=== PATIENT | male | born 1955 | race Caucasian/White ===

== ENCOUNTER → 2020-07-22 | Outpatient (CLI) | payer OTHER | END | disposition home or self-care (01) | LOC: RAH 13:23 | PROVIDERS: ATTEND Internal Medicine Critical Care Medicine | DX: Z13.6 Encounter for screening for cardiovascular disorders (principal) | CPT/HCPCS: 75571 ==

== ENCOUNTER 2021-07-08 11:21 | Inpatient (IN) | payer OTHER ==
[~2021-07-08] VITALS: Ht 180.3 cm; Wt 91.2 kg
[2021-07-08 12:34] LABS: APPEARANCE,URINE Clear (CLEAR); BILIRUBIN,URINE Negative (NEGATIVE); COLOR,URINE Yellow (YELLOW); GLUCOSE, URINE (UA) >=1000 mg/dL (NEGATIVE); KETONES,URINE 40 mg/dL (NEGATIVE); LEUKOCYTE ESTERASE ,URINE Negative (NEGATIVE); NITRATE,URINE Negative (NEGATIVE); OCCULT BLOOD,URINE Negative (NEGATIVE); PROTEIN,URINE POS 1+ mg/dL (NEGATIVE)
[2021-07-08 12:40] LABS: BACTERIA,URINE Rare /HPF (None Seen); RBC,URINE 0-1 /HPF (0-1); SQUAMOUS EPITHELIAL CELL,UR Rare /HPF (0-2); WBC,URINE 0-1 /HPF (0-1)
[2021-07-08 12:42] LABS: AMPHET/METH SCREEN,URINE NEGATIVE (NEGATIVE); BARBITURATE SCREEN, URINE NEGATIVE (NEGATIVE); BENZODIAZEPINES SCREEN,URINE NEGATIVE (NEGATIVE); CANNABINOID SCREEN,URINE NEGATIVE (NEGATIVE); COCAINE SCREEN,URINE NEGATIVE (NEGATIVE); OPIATE SCREEN,URINE NEGATIVE (NEGATIVE); PHENCYCLIDINE SCREEN,URINE NEGATIVE (NEGATIVE)
[2021-07-08 13:04] LABS: BASOPHILS % (AUTO) 0.5 % (0.0-5.0); EOSINOPHILS % (AUTO) 0.6 % (0.0-8.0); HEMATOCRIT 44.8 % (42-54); LYMPHOCYTES % (AUTO) 9.7 % (21.0-51.0); MEAN CORPUSCULAR HEMOGLOBIN 29.2 pg (27.0-33.0); MEAN CORPUSCULAR VOLUME 83.3 fL (79-99); MONOCYTES % (AUTO) 10.4 % (3.0-13.0); NEUTROPHILS % (AUTO) 78.2 % (40.0-77.0); PLATELET COUNT (AUTO) 202 K/uL (130-400); RED BLOOD CELL COUNT(AUTO) 5.38 MIL/uL (4.50-6.20); RED CELL DISTRIBUTION WIDTH 11.9 % (11.0-15.5); WHITE BLOOD COUNT (AUTO) 8.3 K/uL (4.8-10.8)
[2021-07-08 13:17] LABS: CARBON DIOXIDE 29 mmol/L (21-32); CHLORIDE 97 mmol/L (101-111); CREATININE 0.9 mg/dL (0.5-1.5); GLOMERULAR FILTR. RATE CALC 90 mL/min (>60); GLUCOSE,RANDOM 320 mg/dL (70-105); SODIUM SERUM 136 mmol/L (136-145); UREA NITROGEN, BLOOD 4 mg/dL (7-18)
[2021-07-08 13:21] LABS: ALANINE AMINOTRANSFERASE 32 U/L (12-78); ALBUMIN 2.8 g/dL (3.5-5.0); ALCOHOL, BLOOD < 3 mg/dL (0-10); ASPARTATE AMINOTRANSFERASE 18 U/L (10-37); BILIRUBIN,TOTAL 0.5 mg/dL (0.2-1.0); CREATINE KINASE, TOTAL 32 U/L (21-232); TOTAL PROTEIN, SERUM 7.6 g/dL (6.0-8.3)
[2021-07-08 13:24] LABS: ACETAMINOPHEN < 1 mcg/mL (10-29); SALICYLATE < 2.8 mg/dL (2.8-20.0)
[2021-07-08] MEDS ORDERED: ONDANSETRON 4MG INJ IVP ONE (13:30)
[2021-07-08] MEDS ORDERED: MORPHINE 4 MG SYG IV ONE (13:30)
[2021-07-08] MEDS ORDERED: VANCOMYCIN KIT 1 GM/250 ML IV.KIT IV ONE (14:30)
[2021-07-08] MEDS ORDERED: IOHEXOL-350 75 ML VIAL IV ONE (14:34)
[2021-07-08] MEDS ORDERED: 0.9% NACL 250ML 250 ML IV ONE (15:00)
[2021-07-08] MEDS ORDERED: 0.9%NACL 50ML 50 ML IV ONE (15:00)
[2021-07-08] MEDS ORDERED: KCL 20 MEQ ERTAB PO ONE (15:00)
[2021-07-08] MEDS ORDERED: DEXTROSE 50%-WATER 50 ML DISP.SYRIN IV PRN (16:00)
[2021-07-08] MEDS ORDERED: GLUCAGON 1MG KIT 1 MG ML IM PRN (16:00)
[2021-07-08] MEDS ORDERED: KCL 20 MEQ ERTAB PO PRN (16:30)
[2021-07-08] MEDS ORDERED: DiphenhydrAMINE HCL 50 MG/ML VIAL IV PRN (16:30)
[2021-07-08] MEDS ORDERED: ONDANSETRON 4MG INJ IV PRN (16:30)
[2021-07-08] MEDS ORDERED: LIDOCAINE HCL-MPF 1% 2ML VIAL IV PRN (16:30)
[2021-07-08] MEDS ORDERED: DIPHENHYDRAMINE HCL 25 MG CAPSULE PO PRN (16:30)
[2021-07-08] MEDS ORDERED: GUAIFENESIN-DM 200/20 MG 10 ML PO PRN (16:30)
[2021-07-08] MEDS ORDERED: ACETAMINOPHEN 325 MG TAB PO PRN (16:30)
[2021-07-08] MEDS ORDERED: POTASSIUM CHLORIDE 20MEQ/100ML 100 ML IV PRN (16:30)
[2021-07-08] MEDS: INSULIN HUMULIN R 100 UNIT/ML 3ML SQ SCH ×2 (16:42→21:43)
[2021-07-08] MEDS ORDERED: ZOSYN 3.375GM +NS 50ML IV SCH (17:00)
[2021-07-08] MEDS: CLINDAMYCIN IVPB 600MG/50ML 50 ML IV SCH (17:05)
[2021-07-08 17:44] LABS: HEMOGLOBIN A1C 13.4 % (4.0-6.0)
[2021-07-08] MEDS: 0.9%NACL 1000ML 1,000 ML IV SCH (17:47)
[2021-07-08] MEDS: MORPHINE 2 MG SYG IV PRN (17:48)
[2021-07-08] MEDS ORDERED: MORPHINE 2 MG SYG IVP ONE (19:40)
[2021-07-08] MEDS: FAMOTIDINE 20MG TAB PO SCH (21:21)
[2021-07-09] MEDS: CLINDAMYCIN IVPB 600MG/50ML 50 ML IV SCH ×3 (01:08→17:10)
[2021-07-09] MEDS: MORPHINE 2 MG SYG IV PRN ×2 (02:24→21:48)
[2021-07-09] MEDS: ZOLPIDEM TARTRATE 5 MG TAB PO PRN (02:24)
[2021-07-09] MEDS: 0.9%NACL 1000ML 1,000 ML IV SCH ×2 (06:52→19:10)
[2021-07-09] MEDS: INSULIN HUMULIN R 100 UNIT/ML 3ML SQ SCH ×4 (06:58→21:39)
[2021-07-09] MEDS: ACETAMINOPHEN WITH CODEINE 1 TAB TAB PO PRN ×3 (08:09→18:06)
[2021-07-09] MEDS: ENOXAPARIN SODIUM 30 MG/0.3 ML SQ SCH (08:22)
[2021-07-09] MEDS: FAMOTIDINE 20MG TAB PO SCH ×2 (08:22→21:29)
[2021-07-09 14:27] VITALS: BP 111/60
[2021-07-09 16:30] VITALS: BP 116/67
[2021-07-09 19:40] VITALS: BP 97/56
[2021-07-09] MEDS: POTASSIUM CHLORIDE 10% ELIXIR 20 MEQ/15 ML UDCUP PO PRN ×2 (21:49→23:49)
[2021-07-09] MEDS ORDERED: INSULIN GLARGINE 100 UNITS/ML 10 ML VIAL SQ ONE (23:00)
[2021-07-09 23:20] VITALS: BP 122/71
[2021-07-09] MEDS: ZOSYN 3.375GM +NS 50ML IV SCH (23:23)
[2021-07-10] VITALS (23 sets, daily range): BP systolic 82–141; BP diastolic 59–93
[2021-07-10] MEDS: CLINDAMYCIN IVPB 600MG/50ML 50 ML IV SCH ×3 (00:04→16:55)
[2021-07-10] MEDS: POTASSIUM CHLORIDE 10% ELIXIR 20 MEQ/15 ML UDCUP PO PRN (01:45)
[2021-07-10 05:10] LABS: BASOPHILS % (AUTO) 0.5 % (0.0-5.0); EOSINOPHILS % (AUTO) 1.6 % (0.0-8.0); HEMATOCRIT 42.1 % (42-54); LYMPHOCYTES % (AUTO) 15.9 % (21.0-51.0); MEAN CORPUSCULAR HEMOGLOBIN 29.1 pg (27.0-33.0); MEAN CORPUSCULAR HGB CONC 33.7 g/dL (32.0-36.0); MEAN CORPUSCULAR VOLUME 86.3 fL (79-99); PLATELET COUNT (AUTO) 211 K/uL (130-400); RED BLOOD CELL COUNT(AUTO) 4.88 MIL/uL (4.50-6.20); WHITE BLOOD COUNT (AUTO) 7.5 K/uL (4.8-10.8)
[2021-07-10] MEDS: KETOROLAC 30MG VIAL (30MG/ML) IV PRN ×3 (05:13→22:15)
[2021-07-10 05:31] LABS: ALBUMIN 2.1 g/dL (3.5-5.0); BILIRUBIN,TOTAL 0.4 mg/dL (0.2-1.0); CREATININE 0.6 mg/dL (0.5-1.5); MAGNESIUM 1.7 mg/dL (1.80-2.40); PHOSPHORUS 3.1 mg/dL (2.5-4.9); POTASSIUM 3.9 mmol/L (3.5-5.1); TOTAL PROTEIN, SERUM 6.5 g/dL (6.0-8.3)
[2021-07-10] MEDS: ZOSYN 3.375GM +NS 50ML IV SCH ×3 (06:04→22:14)
[2021-07-10] MEDS: INSULIN HUMULIN R 100 UNIT/ML 3ML SQ SCH ×7 (06:50→21:53)
[2021-07-10] MEDS: 0.9%NACL 1000ML 1,000 ML IV SCH ×2 (08:36→14:34)
[2021-07-10] MEDS: ENOXAPARIN SODIUM 30 MG/0.3 ML SQ SCH (08:37)
[2021-07-10] MEDS: FAMOTIDINE 20MG TAB PO SCH ×2 (08:37→21:47)
[2021-07-10] MEDS ORDERED: PROPOFOL 10 MG/ML 20ML VIAL IV ONE (09:07)
[2021-07-10] MEDS ORDERED: LIDOCAINE PF 100MG/5ML (2%) SYRINGE 5ML ONE (09:07)
[2021-07-10] MEDS ORDERED: FENTANYL CITRATE PF 50 MCG/1 ML 2ML VIAL ONE (09:08)
[2021-07-10] MEDS ORDERED: MIDAZOLAM HCL 1 MG/ML 2ML VIAL ONE (09:11)
[2021-07-10] MEDS ORDERED: CEFAZOLIN SODIUM 1 GM VIAL ONE (09:34)
[2021-07-10] MEDS ORDERED: BUPIVACAINE/EPI/PF 0.5% 30ML VIAL IJ ONE (09:40)
[2021-07-10] MEDS ORDERED: LIDOCAINE HCL 1% 20 ML VIAL ONE (09:41)
[2021-07-10] MEDS ORDERED: OXYCODONE/ACETAMIN 5/325MG TAB PO PRN (12:00)
[2021-07-10] MEDS: INSULIN GLARGINE 100 UNITS/ML 10 ML VIAL SQ SCH (21:52)
[2021-07-11] VITALS: BP 143/82
[2021-07-11] MEDS: CLINDAMYCIN IVPB 600MG/50ML 50 ML IV SCH ×4 (00:31→23:25)
[2021-07-11 04:00] VITALS: BP 124/69
[2021-07-11 05:17] LABS: HEMATOCRIT 38.7 % (42-54); MEAN CORPUSCULAR HEMOGLOBIN 29.4 pg (27.0-33.0); MEAN CORPUSCULAR HGB CONC 34.4 g/dL (32.0-36.0); MEAN CORPUSCULAR VOLUME 85.4 fL (79-99); RED BLOOD CELL COUNT(AUTO) 4.53 MIL/uL (4.50-6.20); RED CELL DISTRIBUTION WIDTH 11.9 % (11.0-15.5); WHITE BLOOD COUNT (AUTO) 5.4 K/uL (4.8-10.8)
[2021-07-11 05:36] LABS: ALBUMIN 2.2 g/dL (3.5-5.0); BILIRUBIN,TOTAL 0.2 mg/dL (0.2-1.0); CREATININE 0.7 mg/dL (0.5-1.5); POTASSIUM 3.9 mmol/L (3.5-5.1); TOTAL PROTEIN, SERUM 6.1 g/dL (6.0-8.3)
[2021-07-11] MEDS: ZOSYN 3.375GM +NS 50ML IV SCH ×3 (06:09→23:25)
[2021-07-11] MEDS: INSULIN HUMULIN R 100 UNIT/ML 3ML SQ SCH ×7 (06:21→20:39)
[2021-07-11] MEDS: KETOROLAC 30MG VIAL (30MG/ML) IV PRN ×3 (06:38→20:41)
[2021-07-11 08:00] VITALS: BP 132/78
[2021-07-11] MEDS: FAMOTIDINE 20MG TAB PO SCH ×2 (09:57→20:41)
[2021-07-11] MEDS: ENOXAPARIN SODIUM 30 MG/0.3 ML SQ SCH (09:57)
[2021-07-11 12:00] VITALS: BP 137/78
[2021-07-11 16:00] VITALS: BP 136/68
[2021-07-11] MEDS: ACETAMINOPHEN WITH CODEINE 1 TAB TAB PO PRN ×2 (16:46→23:38)
[2021-07-11 20:00] VITALS: BP 146/89
[2021-07-11] MEDS: INSULIN GLARGINE 100 UNITS/ML 10 ML VIAL SQ SCH (20:39)
[2021-07-11] MEDS: ZOLPIDEM TARTRATE 5 MG TAB PO PRN (23:37)
[2021-07-12] VITALS: BP 147/97
[2021-07-12] MEDS: LACTULOSE 20 GM/30 ML UDCUP PO SCH ×2 (01:30→12:08)
[2021-07-12 03:55] VITALS: BP 139/83
[2021-07-12 05:21] LABS: BASOPHILS % (AUTO) 1.6 % (0.0-5.0); EOSINOPHILS % (AUTO) 2.8 % (0.0-8.0); HEMATOCRIT 40.6 % (42-54); LYMPHOCYTES % (AUTO) 28.1 % (21.0-51.0); MEAN CORPUSCULAR HEMOGLOBIN 31.2 pg (27.0-33.0); MEAN CORPUSCULAR HGB CONC 36.2 g/dL (32.0-36.0); MEAN CORPUSCULAR VOLUME 86.2 fL (79-99); MONOCYTES % (AUTO) 13.3 % (3.0-13.0); NEUTROPHILS % (AUTO) 49.4 % (40.0-77.0); PLATELET COUNT (AUTO) 193 K/uL (130-400); RED BLOOD CELL COUNT(AUTO) 4.71 MIL/uL (4.50-6.20); RED CELL DISTRIBUTION WIDTH 11.9 % (11.0-15.5)
[2021-07-12 05:35] LABS: ALBUMIN 2.3 g/dL (3.5-5.0); BILIRUBIN,TOTAL 0.3 mg/dL (0.2-1.0); CREATININE 0.8 mg/dL (0.5-1.5); TOTAL PROTEIN, SERUM 6.3 g/dL (6.0-8.3)
[2021-07-12] MEDS: KETOROLAC 30MG VIAL (30MG/ML) IV PRN ×2 (06:09→20:39)
[2021-07-12] MEDS: ZOSYN 3.375GM +NS 50ML IV SCH ×3 (06:09→23:04)
[2021-07-12] MEDS: INSULIN HUMULIN R 100 UNIT/ML 3ML SQ SCH ×7 (06:32→20:27)
[2021-07-12 08:00] VITALS: BP 145/86
[2021-07-12] MEDS: FAMOTIDINE 20MG TAB PO SCH ×2 (08:27→20:29)
[2021-07-12] MEDS: CLINDAMYCIN IVPB 600MG/50ML 50 ML IV SCH (08:27)
[2021-07-12] MEDS: ENOXAPARIN SODIUM 30 MG/0.3 ML SQ SCH (08:28)
[2021-07-12 12:00] VITALS: BP 133/83
[2021-07-12] MEDS: ACETAMINOPHEN WITH CODEINE 1 TAB TAB PO PRN (12:15)
[2021-07-12 16:00] VITALS: BP 158/98
[2021-07-12 20:00] VITALS: BP 134/87
[2021-07-12] MEDS: INSULIN GLARGINE 100 UNITS/ML 10 ML VIAL SQ SCH (20:21)
[2021-07-13] VITALS: BP 146/88
[2021-07-13] MEDS: CLINDAMYCIN IVPB 600MG/50ML 50 ML IV SCH (01:04)
[2021-07-13] MEDS: LACTULOSE 20 GM/30 ML UDCUP PO SCH (01:04)
[2021-07-13 04:00] VITALS: BP 155/95
[2021-07-13 04:57] LABS: CREATININE 0.9 mg/dL (0.5-1.5); POTASSIUM 4.2 mmol/L (3.5-5.1)
[2021-07-13] MEDS: INSULIN HUMULIN R 100 UNIT/ML 3ML SQ SCH ×4 (06:07→16:28)
[2021-07-13] MEDS: ZOSYN 3.375GM +NS 50ML IV SCH (06:17)
[2021-07-13] MEDS: KETOROLAC 30MG VIAL (30MG/ML) IV PRN (06:20)
[2021-07-13 08:00] VITALS: BP 153/90
[2021-07-13] MEDS ORDERED: AMOX/CLAV 875/125MG TAB PO SCH (08:00)
[2021-07-13] MEDS ORDERED: ACETAMINOPHEN WITH CODEINE 1 TAB TAB PO PRN ×2 (08:00)
[2021-07-13] MEDS ORDERED: LISINOPRIL 10 MG TABLET PO SCH (09:00)
[2021-07-13] MEDS ORDERED: POLYETHYLENE GLYCOL 3350 17 GM POWD.PACK PO SCH (09:00)
[2021-07-13] MEDS: METFORMIN HCL 500 MG TABLET PO SCH ×3 (09:04→16:27)
[2021-07-13] MEDS: FAMOTIDINE 20MG TAB PO SCH (09:04)
[2021-07-13] MEDS: ENOXAPARIN SODIUM 30 MG/0.3 ML SQ SCH (09:05)
[2021-07-13] MEDS: LUBIPROSTONE 24 MCG CAP PO SCH ×3 (09:07→16:30)
[2021-07-13 12:00] VITALS: BP 126/80
[2021-07-13] MEDS ORDERED: LISI10TA24 PO (13:18)
[2021-07-13] MEDS ORDERED: GLIP5TAB11 PO (13:18)
[2021-07-13] MEDS ORDERED: TYL3B PO (13:18)
[2021-07-13] MEDS ORDERED: AMOX1TAB16 PO (13:18)
[2021-07-13] MEDS ORDERED: METF-444 PO (13:18)
[2021-07-13] MEDS ORDERED: BISACODYL 10 MG SUPP.RECT RC ONE (14:00)
[2021-07-13 16:00] VITALS: BP 117/79
[2021-07-13] MEDS ORDERED: GLIPIZIDE 5 MG TABLET PO SCH (16:30)
[2021-07-22] MEDS ORDERED: CEFAZOLIN SODIUM 1 GM VIAL IVP SCH (13:30)
== END 2021-07-13 17:55 | disposition home or self-care (01) | DRG 348 ==
LOC: EDH 11:21 → EDHIP 11:22 → UNDOADMIN 15:57 → EDHIP 15:57 → 3DH 07-09 14:04
PROVIDERS: ADMIT Hospitalist; ATTEND Hospitalist
PROC: 0D9Q0ZZ Drainage of Anus, Open Approach (ICD-10-PCS; principal; 2021-07-10 09:08)
DX: K61.0 Anal abscess (principal); L03.317 Cellulitis of buttock; E44.0 Moderate protein-calorie malnutrition; R45.851 Suicidal ideations; L02.31 Cutaneous abscess of buttock; E87.6 Hypokalemia; E11.65 Type 2 diabetes mellitus with hyperglycemia; Z20.822 Contact with and (suspected) exposure to COVID-19; B95.61 Methicillin susceptible Staphylococcus aureus infection as the cause of diseases classified elsewhere; I10 Essential (primary) hypertension; F32.9 Major depressive disorder, single episode, unspecified; F10.20 Alcohol dependence, uncomplicated; Z68.28 Body mass index [BMI] 28.0-28.9, adult; Z59.00 Homelessness unspecified; Z56.0 Unemployment, unspecified; Z91.14 Patient's other noncompliance with medication regimen; Z91.19 Patient's noncompliance with other medical treatment and regimen; Z82.49 Family history of ischemic heart disease and other diseases of the circulatory system
CPT/HCPCS: 36415; 71045; 72193; 80048; 80053; 80305; 81001; 82010; 82550; 82728; 82948; 83036; 83605; 83735; 84100; 84145; 84484; 85025; 85027; 85651; 86140; 87040; 87070; 87076; 87077; 87186; 87635; A6266; C9803; G0378; G0481; J0690; J1200; J1650; J1815; J1885; J2001; J2250; J2270; J2405; J2543; J2704; J3010; J3370; J3480; J3490; J7030; Q9967

== ENCOUNTER 2021-07-21 17:02 | Inpatient (IN) | payer OTHER ==
[~2021-07-21] VITALS: Ht 180.3 cm; Wt 87.6 kg
[~2021-07-21 17:02] MED LIST: AMOX1TAB16 PO; GLIP5TAB11 PO; LISI10TA24 PO; METF-444 PO; TYL3B PO; VANCOMYCIN 1G/250ML KIT 250 ML IV SCH
[2021-07-21] MEDS ORDERED: ZOSYN 3.375GM +NS 50ML IV STA (18:15)
[2021-07-21] MEDS ORDERED: VANCOMYCIN 1G VIAL IVPB STA (18:15)
[2021-07-21 19:13] LABS: BASOPHILS % (AUTO) 0.4 % (0.0-5.0); EOSINOPHILS % (AUTO) 0.5 % (0.0-8.0); HEMATOCRIT 47.4 % (42-54); LYMPHOCYTES % (AUTO) 23.4 % (21.0-51.0); MEAN CORPUSCULAR HEMOGLOBIN 29.5 pg (27.0-33.0); MEAN CORPUSCULAR HGB CONC 33.8 g/dL (32.0-36.0); MEAN CORPUSCULAR VOLUME 87.5 fL (79-99); MONOCYTES % (AUTO) 6.8 % (3.0-13.0); NEUTROPHILS % (AUTO) 68.4 % (40.0-77.0); PLATELET COUNT (AUTO) 332 K/uL (130-400); RED BLOOD CELL COUNT(AUTO) 5.42 MIL/uL (4.50-6.20); RED CELL DISTRIBUTION WIDTH 12.5 % (11.0-15.5); WHITE BLOOD COUNT (AUTO) 11.1 K/uL (4.8-10.8)
[2021-07-21] MEDS ORDERED: MORPHINE 4 MG SYG IV STA (19:28)
[2021-07-21] MEDS ORDERED: ONDANSETRON 4MG INJ IVP STA (19:28)
[2021-07-21] MEDS ORDERED: ZOSYN 3.375GM+NS 50ML 50 ML ONE (19:39)
[2021-07-21] MEDS ORDERED: VANCOMYCIN 1G/250ML KIT 250 ML IV ONE (19:40)
[2021-07-21 19:51] LABS: CREATININE 1.7 mg/dL (0.5-1.5); POTASSIUM 3.5 mmol/L (3.5-5.1)
[2021-07-21 19:56] LABS: ALBUMIN 3.5 g/dL (3.5-5.0); BILIRUBIN,TOTAL 0.4 mg/dL (0.2-1.0); TOTAL PROTEIN, SERUM 8.4 g/dL (6.0-8.3)
[2021-07-21] MEDS ORDERED: 0.9%NACL 1000ML 1,000 ML IV ONE ×2 (21:00)
[2021-07-21] MEDS ORDERED: LACTULOSE 20 GM/30 ML UDCUP PO PRN (22:30)
[2021-07-21] MEDS ORDERED: ACETAMINOPHEN 325 MG TAB PO PRN ×2 (22:30)
[2021-07-21] MEDS ORDERED: HYDRALAZINE 20MG/ML VIAL IV PRN (22:30)
[2021-07-21] MEDS ORDERED: MAG/ALUM/SIMETH 30 ML UDCUP PO PRN (22:30)
[2021-07-21] MEDS ORDERED: HYDROCODONE/ACETAMINOPHEN 5/325 MG TAB PO PRN (22:30)
[2021-07-21] MEDS ORDERED: MORPHINE 4 MG SYG IV PRN (22:30)
[2021-07-21] MEDS ORDERED: VANCOMYCIN PROTOCOL PER PHARMACY IV PRN (22:30)
[2021-07-21] MEDS ORDERED: ONDANSETRON 4MG INJ IV PRN (22:30)
[2021-07-21] MEDS: 0.9%NACL 1000ML 1,000 ML IV SCH (23:00)
[2021-07-22 03:20] VITALS: BP 104/71
[2021-07-22] MEDS ORDERED: ZOSYN 3.375GM+NS 50ML 50 ML IV SCH (05:00)
[2021-07-22] MEDS ORDERED: ATOR10 PO (05:06)
[2021-07-22] MEDS: INSULIN HUMULIN R 100 UNIT/ML 3ML SQ SCH ×4 (05:42→21:10)
[2021-07-22 05:58] LABS: HEMATOCRIT 41.8 % (42-54); MEAN CORPUSCULAR HEMOGLOBIN 29.5 pg (27.0-33.0); MEAN CORPUSCULAR VOLUME 89.3 fL (79-99); RED BLOOD CELL COUNT(AUTO) 4.68 MIL/uL (4.50-6.20); RED CELL DISTRIBUTION WIDTH 12.6 % (11.0-15.5); WHITE BLOOD COUNT (AUTO) 6.4 K/uL (4.8-10.8)
[2021-07-22 06:06] LABS: CREATININE 1.2 mg/dL (0.5-1.5); POTASSIUM 4.2 mmol/L (3.5-5.1)
[2021-07-22 08:00] VITALS: BP 109/69
[2021-07-22] MEDS: FAMOTIDINE 20MG VIAL IV SCH (09:15)
[2021-07-22] MEDS: 0.9%NACL 1000ML 1,000 ML IV SCH ×2 (09:16→18:50)
[2021-07-22 12:00] VITALS: BP 126/89
[2021-07-22] MEDS ORDERED: 0.9% NACL 250ML 250 ML IV SCH (12:00)
[2021-07-22] MEDS ORDERED: VANCOMYCIN KIT 1 GM/250 ML IV.KIT IV SCH ×2 (12:30→21:00)
[2021-07-22 16:00] VITALS: BP 113/71
[2021-07-22] MEDS: CEFAZOLIN SODIUM 1 GM VIAL IVP SCH (18:15)
[2021-07-22 20:00] VITALS: BP 127/70
[2021-07-23] VITALS: BP 113/77
[2021-07-23] MEDS: CEFAZOLIN SODIUM 1 GM VIAL IVP SCH ×3 (01:26→16:52)
[2021-07-23 04:00] VITALS: BP 98/73
[2021-07-23] MEDS: 0.9%NACL 1000ML 1,000 ML IV SCH ×2 (04:04→14:30)
[2021-07-23 04:38] LABS: HEMATOCRIT 41.3 % (42-54); MEAN CORPUSCULAR HEMOGLOBIN 29.6 pg (27.0-33.0); MEAN CORPUSCULAR HGB CONC 34.4 g/dL (32.0-36.0); RED BLOOD CELL COUNT(AUTO) 4.8 MIL/uL (4.50-6.20); RED CELL DISTRIBUTION WIDTH 12.3 % (11.0-15.5); WHITE BLOOD COUNT (AUTO) 5.9 K/uL (4.8-10.8)
[2021-07-23 04:46] LABS: CREATININE 1.1 mg/dL (0.5-1.5); POTASSIUM 4.1 mmol/L (3.5-5.1)
[2021-07-23] MEDS: INSULIN HUMULIN R 100 UNIT/ML 3ML SQ SCH ×3 (05:11→16:56)
[2021-07-23 07:30] VITALS: BP 140/82
[2021-07-23] MEDS: FAMOTIDINE 20MG VIAL IV SCH (08:44)
[2021-07-23 12:05] VITALS: BP 145/95
[2021-07-23] MEDS ORDERED: CEFU500T67 PO (15:47)
[2021-07-23 16:30] VITALS: BP 129/89
== END 2021-07-23 19:00 | disposition home or self-care (01) | DRG 603 ==
LOC: EDH 17:02 → EDHIP 17:03 → 3BH 07-22 03:01
PROVIDERS: ADMIT Hospitalist; ATTEND Hospitalist
DX: L03.317 Cellulitis of buttock (principal); N17.9 Acute kidney failure, unspecified; E11.65 Type 2 diabetes mellitus with hyperglycemia; A49.01 Methicillin susceptible Staphylococcus aureus infection, unspecified site; I10 Essential (primary) hypertension; Z60.2 Problems related to living alone; F17.210 Nicotine dependence, cigarettes, uncomplicated; Z81.8 Family history of other mental and behavioral disorders; Z82.49 Family history of ischemic heart disease and other diseases of the circulatory system
CPT/HCPCS: 36415; 72192; 80048; 80053; 80202; 82948; 83605; 85025; 85027; 87040; 87070; 87076; 87077; 87186; G0378; J0690; J1815; J2270; J2405; J2543; J3370; J3490; J7030; J7050

== ENCOUNTER → 2021-07-27 | Outpatient (CLI) | payer OTHER ==
[~2021-07-27] MED LIST changes: -AMOX1TAB16 PO; +ATOR10 PO; +CEFU500T67 PO; +HONEY 1 APPL/ML TUBE TP ONE; +LIDOCAINE HCL 4% LTA SOL 4 ML VIAL TP ONE; -VANCOMYCIN 1G/250ML KIT 250 ML IV SCH
== END | disposition home or self-care (01) ==
LOC: WHH 10:51
PROVIDERS: ATTEND Family Medicine
DX: T81.32XD Disruption of internal operation (surgical) wound, not elsewhere classified, subsequent encounter (principal); L02.31 Cutaneous abscess of buttock; E11.628 Type 2 diabetes mellitus with other skin complications; I10 Essential (primary) hypertension; E66.9 Obesity, unspecified; F17.290 Nicotine dependence, other tobacco product, uncomplicated; F32.9 Major depressive disorder, single episode, unspecified; Z98.890 Other specified postprocedural states; Z68.27 Body mass index [BMI] 27.0-27.9, adult; Y83.8 Other surgical procedures as the cause of abnormal reaction of the patient, or of later complication, without mention of misadventure at the time of the procedure
CPT/HCPCS: 11042; A4450

== ENCOUNTER 2022-01-14 12:10 | Emergency (ER) | payer MEDICARE, OTHER ==
[~2022-01-14] VITALS: Ht 180.3 cm; Wt 99.8 kg
[~2022-01-14 12:10] MED LIST changes: -HONEY 1 APPL/ML TUBE TP ONE; -LIDOCAINE HCL 4% LTA SOL 4 ML VIAL TP ONE
[2022-01-14 12:42] LABS: BASOPHILS % (AUTO) 0.6 % (0.0-5.0); EOSINOPHILS % (AUTO) 4.1 % (0.0-8.0); HEMATOCRIT 50.6 % (42-54); LYMPHOCYTES % (AUTO) 26.4 % (21.0-51.0); MEAN CORPUSCULAR HEMOGLOBIN 28.8 pg (27.0-33.0); MEAN CORPUSCULAR HGB CONC 33.2 g/dL (32.0-36.0); MEAN CORPUSCULAR VOLUME 86.6 fL (79-99); MONOCYTES % (AUTO) 9.7 % (3.0-13.0); NEUTROPHILS % (AUTO) 58.7 % (40.0-77.0); PLATELET COUNT (AUTO) 191 K/uL (130-400); RED BLOOD CELL COUNT(AUTO) 5.84 MIL/uL (4.50-6.20); RED CELL DISTRIBUTION WIDTH 13.3 % (11.0-15.5); WHITE BLOOD COUNT (AUTO) 7.9 K/uL (4.8-10.8)
[2022-01-14 13:06] LABS: APPEARANCE,URINE Cloudy (CLEAR); BILIRUBIN,URINE Negative (NEGATIVE); COLOR,URINE Dark Yellow (YELLOW); GLUCOSE, URINE (UA) >=1000 mg/dL (NEGATIVE); KETONES,URINE Trace mg/dL (NEGATIVE); LEUKOCYTE ESTERASE ,URINE Negative (NEGATIVE); NITRATE,URINE Negative (NEGATIVE); OCCULT BLOOD,URINE Negative (NEGATIVE); PH,URINE 5.5 (5.0-8.0); PROTEIN,URINE Trace mg/dL (NEGATIVE)
[2022-01-14 13:16] LABS: RBC,URINE 0-1 /HPF (0-1)
[2022-01-14 13:16] LABS: ALBUMIN 3.4 g/dL (3.5-5.0); BILIRUBIN,TOTAL 0.4 mg/dL (0.2-1.0); CREATININE 0.9 mg/dL (0.5-1.5); TOTAL PROTEIN, SERUM 6.9 g/dL (6.0-8.3)
[2022-01-14 13:17] LABS: BACTERIA,URINE Rare /HPF (None Seen); MUCUS,URINE Many LPF (None Seen); SQUAMOUS EPITHELIAL CELL,UR Rare /HPF (0-2)
[2022-01-14] MEDS ORDERED: ONDANSETRON 4MG INJ IVP ONE (13:30)
[2022-01-14] MEDS ORDERED: MORPHINE 2 MG SYG IM ONE (13:30)
[2022-01-14] MEDS ORDERED: IBUP-2077 PO (16:42)
[2022-01-14 16:47] VITALS: BP 144/82
== END 2022-01-14 17:04 | disposition home or self-care (01) ==
LOC: EDH 12:10
DX: N28.1 Cyst of kidney, acquired (principal); E11.65 Type 2 diabetes mellitus with hyperglycemia; R82.71 Bacteriuria; R81 Glycosuria; E78.5 Hyperlipidemia, unspecified; E11.40 Type 2 diabetes mellitus with diabetic neuropathy, unspecified; F17.200 Nicotine dependence, unspecified, uncomplicated; I10 Essential (primary) hypertension; Z79.899 Other long term (current) drug therapy; Z79.1 Long term (current) use of non-steroidal anti-inflammatories (NSAID)
CPT/HCPCS: 36415; 74176; 80053; 81001; 83690; 84484; 85025; 93005; 96372; 96374; 99285; J2405

== ENCOUNTER → 2022-03-03 | Outpatient (CLI) | payer OTHER ==
[~2022-03-03] MED LIST changes: +IBUP-2077 PO
== END | disposition home or self-care (01) ==
LOC: RAH 08:46
PROVIDERS: ATTEND Internal Medicine
DX: Z13.6 Encounter for screening for cardiovascular disorders (principal)
CPT/HCPCS: 76775

== ENCOUNTER → 2022-06-16 | Outpatient (CLI) | payer OTHER | END | disposition home or self-care (01) | LOC: RAH 15:22 | PROVIDERS: ATTEND Internal Medicine | DX: I10 Essential (primary) hypertension (principal); Z01.811 Encounter for preprocedural respiratory examination; M47.815 Spondylosis without myelopathy or radiculopathy, thoracolumbar region; I70.0 Atherosclerosis of aorta | CPT/HCPCS: 71046 ==